=== PATIENT | female | born 1975 | race Two or more races ===

== ENCOUNTER → 2017-05-05 | Outpatient (CLI) | payer MEDICAID | LOC: BRMIMAGING 12:56 | PROVIDERS: ATTEND Family Medicine | DX: D25.1 Intramural leiomyoma of uterus (principal); Z97.5 Presence of (intrauterine) contraceptive device | CPT/HCPCS: 76830-PO ==

== ENCOUNTER 2018-06-21 05:44 | Observation (INO) | payer MEDICAID ==
--- NOTE | 2018-05-29 15:05 | GHP ---
[f rep st] PREOP HISTORY AND PHYSICAL DATE OF ADMISSION: 06/21/2018 Patient wishes to remain confidential while in the hospital. PLANNED PROCEDURE: Total laparoscopic hysterectomy with bilateral salpingectomy. INDICATIONS: Patient is a 42-year-old, 3, para 3-0-0-3 who had positive HPV testing in 2010, but repeated her Pap and HPV testing the following year, which was negative. Her Pap in 2018, was A SCUS with HPV positive. Colposcopy was performed, which showed GREG-III. Patient initially presented requesting definitive therapy with a total laparoscopic hysterectomy. However, we discussed the nee d to rule out cervical cancer and perform a LEEP first. A LEEP excision was performed at the end of 2018, which pathology shows was consistent with extensive GREG-II and III, and high-grade dysplasia pr esent at the endocervical margin. Management options, including close surveillance and repeat excisi onal procedure and hysterectomy were reviewed with the patient, and patient would like to proceed wit h a total laparoscopic hysterectomy. Risks and benefits have been extensively reviewed with the purnima ent and patient has been properly consented. MEDICAL HISTORY: Significant for cervical dysplasia, recurrent sinus issues, allergies, migraines, a sthma, and depression. MEDICATIONS: Mirena IUD, Zyrtec, and albuterol. SURGICAL HISTORY: LEEP excision of cervix, sinus surgery, and foot surgery. ALLERGIES: Augmentin, Zithromax, and seafood. SOCIAL HISTORY: Patient is engaged to her partner who is in his 70s. She denies tobacco or drug use . She does drink 3 to 4 alcoholic beverages a week. FAMILY MEDICAL HISTORY: Noncontributory. FIELD INSTALLER HISTORY: Menarche age 15. She has irregular periods and she has a Mirena IUD in. She is a g ravida 3, para 3-0-0-3. She has had 3 spontaneous vaginal deliveries. She does have a history of ab normal Pap smears. She denies any history of any abnormal sexually transmitted diseases. REVIEW OF SYSTEMS: 10-point review of systems is negative. PHYSICAL EXAMINATION: VITAL SIGNS: Stable. GENERAL APPEARANCE: Alert and oriented x3. PSYCH: Ap propriate affect. MUSCULOSKELETAL: Grossly intact. NEURO: Grossly intact. NECK: No thyromegaly. No masses noted. HEART: Regular. LUNGS: Clear to auscultation bilaterally. ABDOMEN: Soft, non distended, nontender. EXTREMITIES: Reveal no calf tenderness or edema. PELVIC: Reveals a mobile s lightly enlarged uterus with no adnexal masses. IMAGING: A bedside pelvic ultrasound was performed, which showed a possible small fibroid at the fun dus of the uterus. Uterus measured 8 x 5 cm. Adnexal were unremarkable. ASSESSMENT AND PLAN: 42-year-old, 3, para 3-0-0-3, with GREG-III on colposcopy with positive margins, requesting definitive therapy. She will undergo a total laparoscopic hysterectomy with bila teral salpingectomy, and cystoscopy. Risks and benefits have been extensively reviewed with the purnima ent and patient has been properly consented. /[id number]/MODL
[2018-06-21] MEDS ORDERED: LIDOCAINE 1% 2 ML INJ ID PRN (05:47)
[2018-06-21] MEDS ORDERED: LR 1,000 ML IV ONE (05:47)
[2018-06-21] MEDS ORDERED: BUPIVACAINE 0.5% 30 ML SDV ONE (06:31)
[2018-06-21] MEDS ORDERED: ceFAZolin 2 GM/DEXTROSE 100 ML IV ONE (06:49)
--- NOTE | 2018-06-21 06:49 | PDHPUP ---
History & Physical Update H&P update statement: This history and physical update is based on an assessment of the patient which was completed after admission or registration (within 24 hours), but prior to the surgery/procedure. H&P update: H&P reviewed & patient examined, no change in patient's condition since H&P completed
--- NOTE | 2018-06-21 07:00 | PDANEPAE ---
ANE History of Present Illness hyst ANE Past Medical History - Cardiovascular History Hx Hypertension: No Hx Arrhythmias: No Hx Chest Pain: No Hx Coronary Artery / Peripheral Vascular Disease: No Hx CHF / Valvular Disease: No Hx Palpitations: No - Pulmonary History Hx COPD: No Hx Asthma/Reactive Airway Disease: Yes Hx Recent Upper Respiratory Infection: No Hx Oxygen in Use at Home: No Hx Sleep Apnea: No Sleep Apnea Screening Result - Last Documented: Negative Pulmonary History Comment: ALLERGY RELATED TRIGGERS - Neurologic History Hx Cerebrovascular Accident: No Hx Seizures: No Hx Dementia: No Neurologic History Comment: MIGRAINES - Endocrine History Hx Diabetes: No Hypothyroid: No Hyperthyroid: No Obesity: no - Renal History Hx Renal Disorders: No - Liver History Hx Hepatic Disorders: No - Neurological & Psychiatric Hx Hx Neurological and Psychiatric Disorders: No Neurological / Psychiatric History Comment: INSOMNIA - LORAZEPAM - Cancer History Hx Cancer: Yes Cancer History Comment: CERVICAL CANCER - Congenital Disorder History Hx Congenital Disorders: No - GI History GERD: no Hx Gastrointestinal Disorders: Yes Gastrointestinal History Comment: 1/mo ACID REFLUX. IBS - Other Health History Other Health History: NEG - Chronic Pain History Chronic Pain: Yes (R KNEE) - Surgical History Prior Surgeries: FOOT SURG REPAIR. SINUS SURGERY ANE Review of Systems Review of Systems: - Exercise capacity Exercise capacity: >=4 METS METS (RN): 4 METS ANE Patient History - Allergies Allergies/Adverse Reactions: azithromycin [From Zithromax] Allergy (Verified 06/11/18 10:24) GI UPSET AND FLU-LIKE SXS clavulanic acid [From Augmentin] Allergy (Verified 06/11/18 10:24) GI UPSET AND FLU-LIKE SXS - Home Medications Home medications: home medication list seen and reviewed Home Medications: Cetirizine 06/11/18 [Last Taken 06/20/18 22:00] Herbals/Supplements -Info Only 06/11/18 [Last Taken 06/12/18] Lorazepam 06/11/18 [Last Taken 06/07/18] Naproxen 06/11/18 [Last Taken 06/12/18] Ventolin Hfa 06/11/18 [Last Taken 06/21/18 06:10] - NPO status NPO Status: no food or drink >8 hours NPO Since - Liquids (Date): 06/21/18 NPO Since - Liquids (Time): 04:00 NPO Since - Solids (Date): 02/27/19 NPO Since - Solids (Time): 21:00 - Anes Hx Anes Hx: post operative nausea and vomiting - Smoking Hx Smoking Status: Never smoked - Family Anes Hx Family Hx Anesthesia Complications: MOTHER - NAUSEA/VOMITING ANE Labs/Vital Signs - Vital Signs Blood Pressure: 128/92 Heart Rate: 94 Respiratory Rate: 18 O2 Sat (%): 98 Height: 170.18 cm Weight: 77.111 kg ANE Physical Exam - Airway Mallampati Score: Class 2 Mouth exam: normal dental/mouth exam - Pulmonary Pulmonary: no respiratory distress - Cardiovascular Cardiovascular: regular rate and rhythym - ASA Status ASA Status: II ANE Anesthesia Plan Anesthesia Plan: general endotracheal anesthesia
[2018-06-21] MEDS ORDERED: MIDAZOLAM 2 MG/2 ML VIAL ONE (07:04)
[2018-06-21] MEDS ORDERED: SCOPOLAMINE HYDROBROMIDE 1 MG/3 DAYS PATCH TD ONE ×2 (07:04→07:15)
[2018-06-21] MEDS ORDERED: fentaNYL 100 MCG/2 ML INJ ONE ×2 (07:10→09:46)
[2018-06-21] MEDS ORDERED: LIDOCAINE 2% 5 ML SDV ONE (07:11)
[2018-06-21] MEDS ORDERED: ROCURONIUM 100 MG/10 ML VIAL ONE (07:11)
[2018-06-21] MEDS ORDERED: KETOROLAC 30 MG/1 ML SDV ONE (07:11)
[2018-06-21] MEDS ORDERED: ONDANSETRON 4 MG/2 ML VIAL ONE (07:11)
[2018-06-21] MEDS ORDERED: DEXAMETHASONE 4 MG/ML VIAL ONE (07:11)
[2018-06-21] MEDS ORDERED: PROPOFOL 200 MG/20 ML VIAL ONE (07:11)
[2018-06-21] MEDS ORDERED: MIDAZOLAM 2 MG/2 ML VIAL IVP ONE (07:15)
[2018-06-21] MEDS ORDERED: SUGAMMADEX SODIUM 200 MG/2 ML VIAL IVP ONE (09:11)
[2018-06-21] MEDS ORDERED: NALOXONE HCL 0.4 MG/ML INJ IVP PRN (09:14)
[2018-06-21] MEDS ORDERED: ALBUTEROL 3 ML DEYVIAL IH PRN (09:14)
[2018-06-21] MEDS ORDERED: HYDROmorphONE/DILAUDID 2 MG/ML INJ IVP PRN (09:14)
[2018-06-21] MEDS ORDERED: ONDANSETRON 4 MG/2 ML VIAL IVP PRN ×2 (09:14→09:18)
[2018-06-21] MEDS ORDERED: LR 500 ML IV PRN (09:14)
[2018-06-21] MEDS ORDERED: HYDROmorphONE/DILAUDID 2 MG/ML INJ ONE (09:16)
[2018-06-21] MEDS ORDERED: KETOROLAC 30 MG/1 ML SDV IVP ONE (09:18)
[2018-06-21] MEDS ORDERED: LR 1,000 ML IV SCH (09:30)
--- NOTE | 2018-06-21 09:31 | POSTANESTH ---
Post Anesthetic Evaluation Cardiovascular Status: Normal, Stable Respiratory Status: Normal, Stable Level of Consciousness/Mental Status: Can Participate in Eval Pain Control: Adequate, Prn Tx Ordered Nausea/Vomiting Control: Adequate, Prn Tx Ordered Complications Possibly Related to Anesthesia: None Noted
[2018-06-21] MEDS: fentaNYL 100 MCG/2 ML INJ IVP PRN ×2 (09:48→09:55)
--- NOTE | 2018-06-21 10:15 | GOP ---
[f rep st] OPERATIVE REPORT DATE OF OPERATION: 06/21/2018 SURGEON: Cleopatra Barajas DO [employer] RESEARCHER: Dr. Escalera. ANESTHESIA: General endotracheal tube. ANESTHESIOLOGIST: Real Calvin M.D. PREOPERATIVE DIAGNOSIS: Cervical dysplasia. POSTOPERATIVE DIAGNOSIS: Cervical dysplasia. PROCEDURE PERFORMED: Total laparoscopic hysterectomy with bilateral salpingectomy and cystoscopy. FINDINGS: Exam under anesthesia, mobile and slightly enlarged uterus with no adnexal masses. Laparoscopic findings: Normal ovaries and tubes, fibroid uterus. Cystoscopy findings: Bilateral ureteral jets, peristalsing. SPECIMENS: Uterus and bilateral tubes. ESTIMATED BLOOD LOSS: 50 cc. INDICATIONS: The patient is a 42-year-old, 3, para 3-0-0-3, who had a positive HPV testing i n 2010. Repeat Pap and HPV testing the following year were negative. Her Pap in 2018 was ASCUS with positive HPV. She had a colposcopy which showed GREG-III. She underwent a LEEP which showed GREG-III with positive margins. Patient requesting definitive therapy with total laparoscopic hysterectomy. Risks and benefits extensively reviewed with the patient and the patient was properly consented. DESCRIPTION OF PROCEDURE: The patient was taken to the operating room with intravenous fluids in amina ce. She was given 2 g of Ancef intravenously. She was then placed on the operating room table in th e dorsal supine position where general anesthesia was obtained. She was then repositioned into the d orsal lithotomy position with the Yellofin stirrups and prepped and [facility] Exam under anesthesia revealed a mobile slightly enlarged uterus with no adnexal masses. A spe culum was then placed in the patient's vagina. A single-tooth tenaculum was used to grasp the anterio r lip of the cervix. The cervix was then dilated. The uterus sounded to 9 cm. The SANAM was assemble d with the 8 cm tip and the large cup and inserted without difficulty. A Sherwood catheter was then amina rich. Attention was then turned to the patient's abdomen where a 5 mm skin incision was then made in the umbilicus and a 5 mm trocar was then advanced into the patient's abdomen under direct visualizati on. The area underneath the trocar insertion site was found to be unremarkable. The abdomen was the n insufflated with CO2 gas until an adequate pneumoperitoneum was achieved. The uterus was noted to b e well mobilized. Upper abdomen was explored and found to be unremarkable. A 5 mm skin incision was then made in the patient's right lower quadrant and a 5 mm trocar was then advanced into the patient 's abdomen under direct visualization. The same thing was done on the patient's left lower quadrant. The LigaSure was then used to perform left salpingectomy and the tube was then withdrawn. The left round ligament was then clamped, cauterized and transected. The left utero-ovarian ligament was cla mped, cauterized and transected, and the left broad ligament was clamped, cauterized and transected. The uterine arteries were then skeletonized and a bladder flap was created anteriorly. The uterine arteries were then clamped, cauterized and transected. The same procedure was performed on the patie nt's opposite side. The SANAM cup was well visualized. The bladder was dissected well away from the a faith of colpotomy site. The colpotomy balloon was then inflated and a colpotomy was performed started posteriorly. This was done under direct visualization. The uterus was then withdrawn through the v agina and a JOSHUA bulb with a slit in the top and a V-Loc suture was then inserted into the patient's va ned to maintain pneumoperitoneum. The suture was then withdrawn from the top of the JOSHUA drain and th e vaginal cuff was closed in a running fashion with a V-Loc suture. Hemostasis was assured and the c uff closed well. The vaginal cuff was hemostatic. The pedicles were all hemostatic. The ureters wer e noted to be peristalsing. The Sherwood catheter was then removed and cystoscopy was performed. A codey ble was noted at the top of the bladder. No suture was visualized. Bilateral ureteral jets were vis ualized. The cystoscope was then withdrawn and the bladder was drained and the Sherwood was removed. C O2 gas was expressed from the patient's abdomen and the skin incisions were then closed with Monocryl in a subcuticular fashion. Sponge, lap and needle count were correct x2. The patient was transport ed to recovery room in stable condition. /[id number]/MODL
[2018-06-21] MEDS: ACETAMINOPHEN 500 MG TAB PO SCH ×2 (13:59→21:48)
[2018-06-21] MEDS: KETOROLAC 30 MG/1 ML SDV IVP SCH ×2 (16:09→21:50)
--- NOTE | 2018-06-21 16:39 | SOAPPROG ---
SOAP Progress Note Assessment/Plan: Assessment: pod# 0 s/p TLH BS for cervical dysplasia uncomplicated post operative course Plan: 06/21/18 16:36 Subjective: patient is doing well. pain is well controlled with toradol and tylenol. tolerating diet. voiding without difficulty. minimal vaginal bleeding. ambulating in the halls. no concerns. Objective: Vital Signs Temp Pulse Resp BP Pulse Ox 36.2 C 72 16 109/64 95 06/21/18 14:36 06/21/18 14:36 06/21/18 14:36 06/21/18 14:36 06/21/18 14:36 06/20/18 06/21/18 06/22/18 05:59 05:59 05:59 Intake Total 1000 Output Total 700 Balance 300 Physical Exam - Physical Exam General Appearance: WD/WN, alert, no apparent distress Neck: non-tender, full range of motion Respiratory: chest non-tender, lungs clear, normal breath sounds, respiratory distress Cardiac/Chest: normal peripheral pulses, regular rate, rhythm Abdomen: normal bowel sounds, non-tender, soft Skin: normal color, warm/dry Extremities: normal range of motion, non-tender, normal inspection, normal capillary refill Neuro/Psych: no motor/sensory deficits, alert, normal mood/affect, oriented x 3
[2018-06-21] MEDS: oxyCODONE IR 5 MG TAB PO PRN (21:48)
[2018-06-22] MEDS: oxyCODONE IR 5 MG TAB PO PRN ×2 (01:57→10:12)
[2018-06-22] MEDS: KETOROLAC 30 MG/1 ML SDV IVP SCH ×2 (04:00→11:28)
[2018-06-22] MEDS: ACETAMINOPHEN 500 MG TAB PO SCH ×2 (06:05→13:38)
[2018-06-22] MEDS ORDERED: ENOXAPARIN 40 MG/0.4 ML SYR SC SCH (09:00)
[2018-06-22] MEDS ORDERED: IBUPROFEN 600 MG TAB PO SCH (09:21)
--- NOTE | 2018-06-22 13:17 | SOAPPROG ---
SOAP Progress Note Assessment/Plan: Assessment: pod# 1 s/p TLH BS for cervical dysplasia uncomplicated post operative course discharge instructions 06/22/18 13:15 Subjective: patient is doing well. pain is well controlled. ambulating. passing gas. no bowel movement yet. scant vaginal bleeding. voiding without difficulty. did have to press on lower abdomen to be able to void. ready to go home. reviewed discharged and follow up instructions. Objective: Vital Signs Temp Pulse Resp BP Pulse Ox 36.7 C 74 17 82/50 L 93 06/22/18 08:00 06/22/18 08:00 06/22/18 08:00 06/22/18 08:00 06/22/18 08:00 Laboratory Results 06/22/18 09:28 06/21/18 06/22/18 06/23/18 05:59 05:59 05:59 Intake Total 4300 1200 Output Total 2575 480 Balance 1725 720 Physical Exam - Physical Exam General Appearance: WD/WN, alert, no apparent distress Respiratory: chest non-tender, lungs clear, normal breath sounds, respiratory distress Cardiac/Chest: normal peripheral pulses, regular rate, rhythm Abdomen: normal bowel sounds, non-tender, soft Skin: normal color, warm/dry, other (incision clean dry and intact) Extremities: normal range of motion, non-tender, normal inspection, normal capillary refill Neuro/Psych: no motor/sensory deficits, alert, normal mood/affect, oriented x 3 ICD10 Worksheet Patient Problems: Problems Problem Status Onset Cervical dysplasia Acute
[2018-06-22 13:18] VITALS: BP 98/57
== END 2018-06-22 14:15 | disposition home or self-care (01) ==
LOC: F3N 05:44 → EEVIPCON 05:44 → FOB 10:30
PROVIDERS: ADMIT Obstetrics & Gynecology; ATTEND Obstetrics & Gynecology
PROC: 0UT94ZZ Resection of Uterus, Percutaneous Endoscopic Approach (ICD-10-PCS; principal; 2018-06-21 07:15)
PROC: 0UT74ZZ Resection of Bilateral Fallopian Tubes, Percutaneous Endoscopic Approach (ICD-10-PCS; principal; 2018-06-21 07:15)
DX: D06.0 Carcinoma in situ of endocervix (principal); D25.1 Intramural leiomyoma of uterus; N80.0 Endometriosis of uterus; K21.9 Gastro-esophageal reflux disease without esophagitis; K58.9 Irritable bowel syndrome, unspecified
CPT/HCPCS: J0690; J1100; J1170; J1650; J1885; J2250; J2405; J2704; J3010